=== PATIENT | female | born 1975 | race Caucasian/White ===

== ENCOUNTER 2016-10-05 00:44 | Day surgery (SDC) | payer OTHER ==
[~2016-10-05] VITALS: Ht 172.7 cm; Wt 88.0 kg
[~2016-10-05 00:44] MED LIST: ALPR0.25 PO; BUPR2TAB SL
[2016-10-05] MEDS ORDERED: fentaNYL-PF 50 mCg/mL 2 mL Inj IVPUSH PRN (06:00)
[2016-10-05] MEDS ORDERED: Sodium Chloride LOK Flush 10 mL Syringe IV PRN (06:00)
[2016-10-05 13:40] VITALS: BP 144/94; PULSE 79; RESP 14; O2SAT 98
[2016-10-05] MEDS ORDERED: METH40VI IJ (13:42)
[2016-10-05] MEDS ORDERED: MDR150V IM (13:42)
[2016-10-05] MEDS: 0.9% Sodium Chloride 1,000 ML IV SCH ×2 (14:18→14:35)
[2016-10-05 14:43] VITALS: BP 131/82; PULSE 71; RESP 16; O2SAT 99
[2016-10-05 14:53] VITALS: BP 127/78; PULSE 61; RESP 16; O2SAT 100
[2016-10-05 15:03] VITALS: BP 130/77; PULSE 64; RESP 16; O2SAT 98
--- NOTE | 2016-10-06 07:50 | ENDO ---
[address] [address] ENDOSCOPY PROCEDURE PATIENT: ASHOK VAZQUEZ : 1975 MR#: [id number] ADMIT: 10/05/2016 JOB ID: [id number] DATE OF SERVICE: 10/05/2016 TYPE OF OPERATION: 1. Esophagogastroduodenoscopy with biopsy. 2. Colonoscopy with biopsy. PREOPERATIVE DIAGNOSIS(ES): 1. Abdominal pain. 2. Diarrhea. POSTOPERATIVE DIAGNOSIS(ES): 1. Mild nonerosive gastritis, status post biopsy. 2. Small internal hemorrhoids. ANESTHESIA: Fentanyl 200 mcg, Versed 10 mg IV administered. COMPLICATIONS: None. BLOOD LOSS: Minimal. DESCRIPTION OF PROCEDURE: After risks and benefits explained to the patient, informed consent was obtained. After anesthesia administered, upper endoscope was then inserted in the mouth, intubated into the esophagus, stomach and second portion of duodenum. Mucosa carefully examined. After procedure was done, the scope withdrawn and procedure terminated. Colonoscope was then inserted from rectum to the terminal ileum. Mucosa carefully examined. Prep of the patient was fair. After the procedure was done, the scope withdrawn and procedure terminated. FINDINGS: Upon inspection of the esophagus, esophagus was normal without masses, ulcers, or lesions. Z-line located 40 cm from incisors. Upon entry of the stomach, there was mild nonerosive gastritis that was seen. No masses, ulcers, or lesions were seen. Retroflexion was normal. Duodenal bulb, first and second portions were normal. Biopsies taken of the antrum, body and duodenum. Upon inspection of the anus, no masses, hemorrhoids, ulcers, or fissures that were seen. Throughout the entire examination, there were no polyps, masses, or lesions. Biopsies taken of the terminal ileum and random colon. Retroflexion showed small internal hemorrhoids. IMPRESSION: 1. Small internal hemorrhoids. 2. Mild nonerosive gastritis. RECOMMENDATIONS: Await pathology results. Follow up with Faby Mills PA-C as an outpatient in GI clinic.
--- NOTE | 2016-10-08 15:46 | PATH ---
SURGICAL PATHOLOGY Attending Physician:Juice Lazo MD CASE STATUS: Signed Out PATIENT NAME: ASHOK VAZQUEZ PID: [id number] : 1975 DATE COLLECTED:10/05/2016 00:00 SPECIMEN: 1: Stomach, Antrum, Biopsy 2: Gastric, Biopsy 3: Duodenum, Biopsy 4: Ileum, Biopsy 5: Colon, Biopsy CLINICAL HISTORY: 1). ANTRUM BIOPSY 2). GASTRIC BODY BIOPSY 3). DUODENUM BIOPSY 4). TERMINAL ILEUM BIOPSY 5). RANDOM COLON BIOPSY FINAL DIAGNOSIS: 1.BIOPSY, GASTRIC ANTRUM: FRAGMENTS OF NORMAL-APPEARING ANTRAL MUCOSA. Negative for significant inflammation. Negative for evidence of Helicobacter. Negative for intestinal metaplasia. Negative for dysplasia and malignancy. 2.GASTRIC BODY BIOPSIES: MUCOSAL HYPEREMIA INVOLVING FUNDIC MUCOSA WITHOUT ASSOCIATED SIGNIFICANT INFLAMMATION. Negative for evidence of Helicobacter. Negative for intestinal metaplasia. Negative for dysplasia and malignancy. 3.DUODENUM BIOPSY: FRAGMENTS OF NORMAL-APPEARING SMALL BOWEL MUCOSA. Normal delicate mucosal villi present. Negative for significant inflammation, dysplasia and malignancy. 4.TERMINAL ILEUM BIOPSY: FRAGMENTS OF NORMAL-APPEARING TERMINAL ILEUM MUCOSA. Negative for granulomas. Negative for significant inflammation, dysplasia and malignancy. 5.RANDOM COLON BIOPSIES: FRAGMENTS OF NORMAL-APPEARING COLON MUCOSA. Negative for significant architectural distortion. Negative for significant inflammation, dysplasia and malignancy. ICD10 R19.7 GROSS DESCRIPTION: The specimen is received in five formalin filled containers labeled with the patient's name. 1). The specimen is sublabeled "antrum" and consists of 2 portions of tissue which aggregate to 0.3 x 0.3 x 0.2 CM. The specimen is entirely submitted in cassette 1A. 2). The specimen is sublabeled "gastric body" and consists of a 0.4 x 0.3 x 0.2 CM portion of tissue which is entirely submitted in cassette 2A. 3). The specimen is sublabeled "duodenum" and consists of 2 portions of tissue which aggregate to 0.3 x 0.2 x 0.2 CM. The specimen is entirely submitted in cassette 3A. 4). The specimen is sublabeled "terminal ileum" and consists of 2 portions of tissue which aggregate to 0.3 x 0.3 x 0.2 CM. The specimen is entirely submitted in cassette 4A. 5). The specimen is sublabeled "random colon" and consists of 4 portions of tissue which aggregate to 0.5 x 0.4 x 0.3 CM. The specimen is entirely submitted in cassette 5A. 10/06/2016 DAC MICRO DESCRIPTION: See diagnosis. ICD-9 CODES: CPT CODES: 1: 55608 2: 55313 3: 70749 4: 82930 5: 57653 Electronically Signed Out Lg Kaufman MD [facility] [address], [place] [address] Technical component performed at [facility], [facility] [address], [place], [address]
== END 2016-10-05 23:59 | disposition home or self-care (01) ==
LOC: END 00:44
PROVIDERS: ATTEND Internal Medicine Gastroenterology
DX: R19.7 Diarrhea, unspecified (principal); K64.8 Other hemorrhoids; K29.70 Gastritis, unspecified, without bleeding
CPT/HCPCS: 43239; 45380; 99153; G0500; J7030